=== PATIENT | male | born 1950 | race Caucasian/White ===

== ENCOUNTER 2024-12-20 17:34 | Inpatient (IN) | payer BC ==
[~2024-12-20] VITALS: Ht 193 cm; Wt 99.8 kg
[2024-12-20] MEDS ORDERED: IOHEXOL 350 100 ML INFUS..BTL ONE (17:54)
[2024-12-20 17:57] LABS: PLATELET COUNT (AUTO) 201 K/uL (152-348); RED BLOOD CELL COUNT(AUTO) 5.23 MIL/uL (4.06-5.63); RED CELL DISTRIBUTION WIDTH 13.6 % (12.1-16.2); WHITE BLOOD COUNT (AUTO) 5.4 K/uL (3.6-10.2)
[2024-12-20 18:08] LABS: CREATININE 1.1 mg/dL (0.6-1.3); SODIUM SERUM 142 mmol/L (136-145); UREA NITROGEN, BLOOD 20 mg/dL (7-18)
[2024-12-20 18:15] LABS: ASPARTATE AMINOTRANSFERASE 16 U/L (15-37); TOTAL PROTEIN, SERUM 7.1 g/dL (6.4-8.2)
[2024-12-20] MEDS ORDERED: CLOPIDOGREL 75 MG TABLET ONE ×2 (20:26)
[2024-12-20] MEDS ORDERED: ATORVASTATIN 20 MG TABLET ONE (20:26)
[2024-12-20] MEDS: ATORVASTATIN 40 MG TABLET PO SCH ×2 (20:38)
[2024-12-20] MEDS: CLOPIDOGREL 75 MG TABLET PO ONE (20:38)
[2024-12-21] VITALS (7 sets, daily range): BP systolic 128–150; BP diastolic 62–88; TEMP 97.5–98.6; O2SAT 93–95
[2024-12-21] MEDS ORDERED: MAGNESIUM HYDROXIDE 30 ML LIQUID UDC PO PRN (03:30)
[2024-12-21] MEDS ORDERED: ONDANSETRON 4 MG/2 ML VIAL IV PRN (03:30)
[2024-12-21] MEDS ORDERED: REMEDY ESSENTIAL ZINC PASTE 113 GM TP PRN (03:30)
[2024-12-21] MEDS ORDERED: ACETAMINOPHEN 325 MG TABLET PO PRN (03:30)
[2024-12-21] MEDS: ENOXAPARIN SODIUM 40 MG/0.4 ML DISP.SYRIN SQ SCH (04:08)
[2024-12-21] MEDS: ASPIRIN 81 MG TAB.CHEW PO SCH (09:14)
[2024-12-21] MEDS ORDERED: ALIR150P3 SQ (10:21)
[2024-12-21] MEDS ORDERED: PANT40TA2 PO (10:21)
[2024-12-21] MEDS ORDERED: LIDO30AD10 TD (10:21)
[2024-12-21] MEDS ORDERED: MEMA7CAP PO (10:21)
[2024-12-21] MEDS ORDERED: DONE10TA44 PO (10:21)
[2024-12-21] MEDS ORDERED: DENO60DI SQ (10:21)
[2024-12-21] MEDS ORDERED: PREG50CA PO (10:21)
[2024-12-21] MEDS ORDERED: ASPI81TA31 PO (10:22)
[2024-12-21] MEDS: CLOPIDOGREL 75 MG TABLET PO SCH (17:22)
== END 2024-12-21 20:11 | disposition left against medical advice (07) | DRG 65 ==
LOC: ER 17:37 → TELE3 20:17
PROVIDERS: ADMIT Internal Medicine; ATTEND Internal Medicine
DX: I63.9 Cerebral infarction, unspecified (principal); G45.9 Transient cerebral ischemic attack, unspecified; I45.3 Trifascicular block; R29.701 NIHSS score 1; R47.1 Dysarthria and anarthria; R20.0 Anesthesia of skin; I67.1 Cerebral aneurysm, nonruptured; Z79.899 Other long term (current) drug therapy; Z53.29 Procedure and treatment not carried out because of patient's decision for other reasons; Z79.82 Long term (current) use of aspirin; I10 Essential (primary) hypertension; R00.1 Bradycardia, unspecified
CPT/HCPCS: 36415; 70450; 70496; 70551; 71045; 84484; 85025; 85730; 86850; 86900; 86901; 93005; 93307; A4663; G0378; J1650; Q9967